=== PATIENT | male | born 1950 | race Caucasian/White ===

== ENCOUNTER 2025-02-03 08:14 | Day surgery (SDC) | payer BC, OTHER ==
[~2025-02-03 08:14] MED LIST: Sodium Chloride 0.9% 10 ML Syringe FLUSH PRN; Sodium Chloride 0.9% 10 ML Syringe FLUSH SCH
[2025-02-03] MEDS: Lactated Ringers 1,000 ML IV SCH (08:50)
[2025-02-03] MEDS ORDERED: Lidocaine 1% 4 ML ONE (09:55)
[2025-02-03] MEDS ORDERED: Propofol 200 MG/20 ML SDV ONE (09:55)
== END 2025-02-03 11:25 | disposition home or self-care (01) ==
LOC: JD.SDS 08:14
PROVIDERS: ATTEND Surgery
DX: Z12.11 Encounter for screening for malignant neoplasm of colon (principal); D12.4 Benign neoplasm of descending colon; Z79.899 Other long term (current) drug therapy
CPT/HCPCS: 45385; 88305; 93005; J2003; J2704; J7120; 00811; 93010; 99100